=== PATIENT | male | born 2000 | race Caucasian/White ===

== ENCOUNTER 2021-01-06 09:46 | Emergency (ER) | payer SELFPAY ==
[~2021-01-06] VITALS: Ht 188 cm; Wt 68.0 kg
[2021-01-06 10:14] VITALS: BP 125/58
[2021-01-06] MEDS ORDERED: IPRATRPIUM/ALBUTEROL 0.5/2.5MG 3 ML NEBU. NEB ONE (10:15)
[2021-01-06] MEDS ORDERED: predniSONE 20 MG TABLET PO ONE (10:15)
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
--- NOTE | 2021-01-06 10:32 | RAD ---
EXAM: Chest, single view. HISTORY: Shortness of air. COMPARISON: None. FINDINGS: A frontal view of the chest is obtained. There is no infiltrate, pleural effusion or pneumo thorax. The heart is normal in size. IMPRESSION: No acute pulmonary finding. Electronically signed by: Kenzie Pemberton MD (01/06/2021 10:29 AM) [id number]
[2021-01-06] MEDS ORDERED: PRED20TA PO (10:44)
== END 2021-01-06 10:54 | disposition home or self-care (01) ==
LOC: ER 09:46
DX: U07.1 COVID-19 (principal); J45.21 Mild intermittent asthma with (acute) exacerbation; Z88.5 Allergy status to narcotic agent
CPT/HCPCS: 71045; 94640; 99284; C9803; J7512; U0003

== ENCOUNTER 2021-06-21 19:41 | Emergency (ER) | payer SELFPAY ==
[~2021-06-21] VITALS: Ht 188 cm; Wt 68.0 kg
[~2021-06-21 19:41] MED LIST: PRED20TA PO
[2021-06-21 20:32] VITALS: BP 129/79
[2021-06-21] MEDS ORDERED: IBUPROFEN 600 MG TABLET. PO ONE (20:45)
[2021-06-21] MEDS ORDERED: ONDANSETRON ODT 4 MG TAB.RAPDIS PO ONE (20:45)
[2021-06-21] MEDS ORDERED: ONDA4TAB12 PO (20:49)
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
[2021-06-21] MEDS: ONDANSETRON ODT 4 MG TAB.RAPDIS PO ONE ×2 (20:50→23:00)
[2021-06-21] MEDS ORDERED: IV NORMAL SALINE 1,000ML 1,000 ML IV ONE (22:15)
[2021-06-21] MEDS ORDERED: ONDANSETRON 4MG ODT 4TABLET STARTPACK. PO ONE (22:15)
[2021-06-21] MEDS ORDERED: ONDANSETRON PF 4 MG/2 ML VIAL. IVP ONE (22:15)
[2021-06-21 22:55] LABS: INFLUENZA A PATIENT NEGATIVE (NEGATIVE); INFLUENZA B PATIENT NEGATIVE (NEGATIVE)
== END 2021-06-21 23:15 | disposition home or self-care (01) ==
LOC: ER 19:41
DX: R11.2 Nausea with vomiting, unspecified (principal); R51.9 Headache, unspecified; Z20.822 Contact with and (suspected) exposure to COVID-19; Z88.5 Allergy status to narcotic agent
CPT/HCPCS: 87426; 87804; 96361; 96374; 99284; J2405; J7030; Q0162